=== PATIENT | female | born 2000 | race Caucasian/White ===

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

== ENCOUNTER → 2023-08-28 | Outpatient (CLI) | payer OTHER | LOC: LAB 13:33 → LAB SHORT 13:33 | DX: L08.9 Local infection of the skin and subcutaneous tissue, unspecified (principal); S61.431A Puncture wound without foreign body of right hand, initial encounter | CPT/HCPCS: 87070; 87075; 87077; 87147; 87186; 87205 ==